=== PATIENT | male | born 1975 | race Caucasian/White ===

== ENCOUNTER 2016-12-24 21:24 | Observation (INO) | payer MEDICAID ==
[2016-12-24 21:24] VITALS: BMI 24.3
[2016-12-24] MEDS ORDERED: Sodium Chloride 0.9% 1,000 ML ONE (22:27)
[2016-12-24] MEDS ORDERED: DiphenhydrAMINE 50 mg/ml Inj ONE (22:28)
[2016-12-24 22:51] LABS: BASO # 0.1 K/uL (0.0-0.2); BASO % 0.7 % (0.0-2.0); EOS # 0.3 K/uL (0.0-0.7); EOS % 3.7 % (0.0-4.0); HEMATOCRIT 40.8 % (35.0-51.0); LYMPH # 1.6 K/uL (1.0-4.3); MEAN CELL VOLUME 80.5 fL (80.0-94.0); MEAN CORPUSCULAR HEMOGLOBIN 26.7 pg (27.0-31.0); MEAN CORPUSCULAR HGB CONC 33.2 g/dL (33.0-37.0); MEAN PLATELET VOLUME 7.6 fL (7.2-11.7); MONO # 0.8 K/uL (0.0-0.8); MONO % 9.8 % (0.0-10.0); NRBC % 0.1 % (0.0-2.0); RED CELL DISTRIBUTION WIDTH 13.8 % (11.5-14.5); WHITE BLOOD COUNT 8.2 K/uL (4.8-10.8)
[2016-12-24 22:58] LABS: CHLORIDE 102 mmol/L (98-107); SODIUM 137 mmol/L (132-148)
[2016-12-24 22:59] LABS: POTASSIUM 3.6 mmol/L (3.6-5.2)
[2016-12-24 23:00] LABS: GFR AFRICAN-AMERICAN 32
[2016-12-24 23:01] LABS: ALB/GLOB RATIO 1.3 (1.0-2.1); ALKALINE PHOSPHATASE 76 U/L (38-126); AST/SGOT 23 U/L (17-59); BILIRUBIN,TOTAL 0.5 mg/dL (0.2-1.3); BLOOD UREA NITROGEN 36 mg/dL (9-20); CARBON DIOXIDE 23 mmol/L (22-30); GLUCOSE,RANDOM 110 mg/dL (75-110); TOTAL PROTEIN 7.3 g/dL (6.3-8.3)
[2016-12-24 23:02] LABS: ALT/SGPT 35 U/L (21-72)
[2016-12-24] MEDS ORDERED: MethylPREDNISolone 40 mg Vial IVP STA (23:09)
[2016-12-24] MEDS ORDERED: DiphenhydrAMINE 50 mg/ml Inj IVP STA (23:09)
--- NOTE | 2016-12-25 00:03 | C.PDOC ---
History Of Present Illness A 41 y/o M presents to the ER c/o lacy rash to chest, arms, legs, back, and abdomen for the last 2 days. Patient notes this a rash similar to a previous one in July with a lengthy hospitalization. Denies fever, chills, nausea, vomiting, diarrhea, sick contact, recent travel, or any other complaints. Time Seen by Provider: 12/24/16 22:21 Chief Complaint (Nursing): Allergic Reaction History Per: Patient History/Exam Limitations: no limitations Onset/Duration Of Symptoms: Days (2) Current Symptoms Are (Timing): Still Present Severity: Mild Recent travel outside of the [place]: No Additional History Per: Patient Past Medical History Reviewed: Historical Data, Nursing Documentation, Vital Signs Vital Signs: Last Vital Signs Temp 98.3 F 12/24/16 21:52 Pulse 82 12/25/16 00:20 Resp 18 12/25/16 00:20 BP 135/102 H 12/25/16 00:20 Pulse Ox 100 12/25/16 00:20 - Medical History PMH: HTN, Chronic Kidney Disease Family History: States: Unknown Family Hx - Social History Hx Tobacco Use: No Hx Alcohol Use: No Hx Substance Use: No - Immunization History Hx Tetanus Toxoid Vaccination: No Hx Influenza Vaccination: No Hx Pneumococcal Vaccination: No Review Of Systems Except As Marked, All Systems Reviewed And Found Negative. Constitutional: Negative for: Fever, Chills Gastrointestinal: Negative for: Nausea, Vomiting, Diarrhea Skin: Positive for: Rash Physical Exam - Physical Exam Appears: Non-toxic, No Acute Distress Skin: Warm, Dry, Rash (Lacy rash to the chest, arms, abdomen, back, and legs with confluence and wheals. Consistent with acute alergic reaction and similar to prior presentation.) Head: Atraumatic, Normacephalic Ear(s): Bilateral: Normal Nose: Normal Oral Mucosa: Moist Throat: Normal, No Erythema, No Exudate Neck: Supple Cardiovascular: Rhythm Regular Respiratory: Normal Breath Sounds, No Rales, No Rhonchi, No Wheezing Gastrointestinal/Abdominal: Soft, No Tenderness Neurological/Psych: Oriented x3, Normal Speech, Normal Cognition ED Course And Treatment - Laboratory Results Result Diagrams: 12/24/16 22:44 12/24/16 22:44 Lab Interpretation: Normal (baseline creat +/- 2.7, normal K+, trop neg) ECG: Interpreted By Me ECG Rhythm: Sinus Rhythm ECG Interpretation: Normal Rate From EC O2 Sat by Pulse Oximetry: 96 (RA) Pulse Ox Interpretation: Normal - Radiology CXR: Interpreted by Me CXR Interpretation: Yes: No Acute Disease Progress Note: solumedrol, pepcid, benadryl Reevaluation Time: 23:58 Reassessment Condition: Unchanged (no significant improvement of rash on chest/ arms/legs/abd, continued pruritic) - Physician Consult Information Outcome Of Conversation: [id number]: d/w Dr. Mcguire- PMD ok to Obs, consult w Dr. Kendall's group in AM Critical Care Time - Critical Care Note Total Time (in mins): 90 Documented critical care: time excludes all time spent performing seperately billable procedures. Medical Decision Making Medical Decision Making: Impression: A 41 y/o M presents to the ER c/o lacy rash to chest, arms, legs, back, and abdomen for the last 2 days. Plans: * EKG * CXR * Catapres * Benadryl * Pepcid * SOLU-Medrol * UA * IV fluids * Reassess acute on chronic rash of ? etiology ? related to med changes, but no changes in past month unimproved w ED treatment- not comfortable d/c'ing pt with evolving rash and underlying CRI Called pt's pharmacy, not open @ night- admitting team may call in AM to verify meds/doses. HTN regimen is poorly organized and taken @ 9AM and 9PM which provokes terrible rebound HTN effects of Conidine when taken this way Taking Amlodipine @ night for ?? reason, advised to take in AM, dose unknown Carvedilol BID but taking 9A and 9P, dose unknown Nephrology to please organize HTN regimen for better compliance. Disposition Doctor Will See Patient In The: Hospital Counseled Patient/Family Regarding: Studies Performed, Diagnosis - Disposition Disposition: HOSPITALIZED Disposition Time: 00:03 Condition: GOOD - Clinical Impression Clinical Impression: Rash, CKD (chronic kidney disease), stage III, Uncontrolled hypertension - Scribe Statement The provider has reviewed the documentation as recorded by the [facility] All medical record entries made by the [facility] were at my direction and personally dictated by me. I have reviewed the chart and agree that the record accurately reflects my personal performance of the history, physical exam, medical decision making, and the department course for this patient. I have also personally directed, reviewed, and agree with the discharge instructions and disposition.
[2016-12-25 01:26] LABS: RBC URINE 1 /hpf (0-3); URINE BILIRUBIN NEGATIVE (NEGATIVE); URINE COLOR Colorless (YELLOW); URINE GLUCOSE (UA) 1+ mg/dL (Normal); URINE KETONE NEGATIVE (NEGATIVE); URINE LEUKOCYTE ESTERASE NEG Leu/uL (Negative); URINE PROTEIN 1+ mg/dL (NEGATIVE); URINE UROBILINOGEN NORMAL mg/dL (0.2-1.0); WBC URINE < 1 /hpf (0-5)
[2016-12-25 01:30] LABS: URINE BLOOD NEGATIVE (NEGATIVE)
[2016-12-25] MEDS: Sodium Chloride 0.9% 1,000 ML IV SCH ×2 (05:09→09:15)
--- NOTE | 2016-12-25 08:10 | RAD ---
PROCEDURE: CHEST RADIOGRAPH, 1 VIEW HISTORY: SOB COMPARISON: Comparison is made to 06/27/2016 FINDINGS: LUNGS: Suboptimal poor inspiratory effort portable frontal chest x-ray. No evidence of new infiltrate or consolidation. PLEURA: No pneumothorax or pleural fluid seen. CARDIOVASCULAR: Normal. OSSEOUS STRUCTURES: No significant abnormalities. VISUALIZED UPPER ABDOMEN: Normal. OTHER FINDINGS: None. IMPRESSION: No active disease.
[2016-12-25] MEDS ORDERED: MethylPREDNISolone 40 mg Vial IVP STA (09:07)
--- NOTE | 2016-12-25 09:22 | CP.PCM.CON ---
History of Present Illness - History of Present Illness History of Present Illness: A 41 y/o M presents to the ER c/o lacy rash to chest, arms, legs, back, and abdomen for the last 2 days. Patient notes this a rash similar to a previous one in July with a lengthy hospitalization. Denies fever, chills, nausea, vomiting, diarrhea, sick contact, recent travel, or any other complaints. RASH HAS BEEN INTERMITTENT; DIFFUSE, PRURITIC, MACULAR PAPULAR PMH: CKD 3-4 HTN PSH: HERNIA REPAIR Review of Systems - Review of Systems All systems: reviewed and no additional remarkable complaints except - Constitutional Constitutional: Weakness - EENT Eyes: absent: As Per HPI, Blind Spots, Blurred Vision, Change in Vision, Decreased Night Vision, Diplopia, Discharge, Dry Eye, Exophthalmos, Floaters, Irritation, Itchy Eyes, Loss of Peripheral Vision, Pain, Photophobia, Requires Corrective Lenses, Sees Flashes, Spots in Vision, Tunnel Vision, Other Visual Disturbances, Loss of Vision, Other Ears: absent: As Per HPI, Decreased Hearing, Ear Discharge, Ear Pain, Tinnitus, Abnormal Hearing, Disequilibrium, Dizziness, Other Nose/Mouth/Throat: absent: As Per HPI, Epistaxis, Nasal Congestion, Nasal Discharge, Nasal Obstruction, Nasal Trauma, Nose Pain, Post Nasal Drip, Sinus Pain, Sinus Pressure, Bleeding Gums, Change in Voice, Dental Pain, Dry Mouth, Dysphagia, Halitosis, Hoarsness, Lip Swelling, Mouth Lesions, Mouth Pain, Odynophagia, Sore Throat, Throat Swelling, Tongue Swelling, Facial Pain, Neck Pain, Neck Mass, Other - Cardiovascular Cardiovascular: absent: As Per HPI, Acrocyanosis, Chest Pain, Chest Pain at Rest , Chest Pain with Activity, Claudication, Diaphoresis, Dyspnea, Dyspnea on Exertion, Edema, Irregular Heart Rhythm, Pain Radiating to Arm/Neck/Jaw, Leg Edema, Leg Ulcers, Lightheadedness, Orthopnea, Palpitations, Paroxysmal Nocturnal Dyspnea, Pedal Edema, Radiating Pain, Rapid Heart Rate, Slow Heart Rate, Syncope, Other - Respiratory Respiratory: absent: As Per HPI, Cough, Dyspnea, Hemoptysis, Dyspnea on Exertion , Wheezing, Snoring, Stridor, Pain on Inspiration, Chest Congestion, Excessive Mucous Production, Change in Mucous Color, Pain with Coughing, Other - Gastrointestinal Gastrointestinal: absent: As Per HPI, Abdominal Pain, Belching, Bloating, Change in Bowel Habits, Change in Stool Character, Coffee Ground Emesis, Constipation, Cramping, Diarrhea, Dyspepsia, Dysphagia, Early Satiety, Excessive Flatus, Fecal Incontinence, Heartburn, Hematemesis, Hematochezia, Loose Stools, Melena, Nausea, Odynophagia, Temesmus, Vomiting, Other - Genitourinary Genitourinary: absent: As Per HPI, Change in Urinary Stream, Difficulty Urinating, Dysuria, Flank Pain, Hematuria, Pyuria, Nocturia, Urinary Incontinence, Urinary Frequency, Urinary Hesitance, Urinary Urgency, Voiding Freq/Small Amts, Freq UTI, Hx Renal/Bladder Calculi, Hx /Renal Surgery, Bladder Distension, Other - Musculoskeletal Musculoskeletal: Muscle Cramps, Stiffness - Integumentary Integumentary: As Per HPI, Erythema, New Lesions - Neurological Neurological: absent: As Per HPI, Abnormal Gait, Abnormal Hearing, Abnormal Movements, Abnormal Speech, Behavioral Changes, Burning Sensations, Confusion, Convulsions, Disequilibrium, Dizziness, Numbness, Focal Weakness, Frequent Falls , Headaches, Lack of Coordination, Loss of Vision, Memory Loss, Paresthesias, Radicular Pain, Restless Legs, Sensory Deficit, Syncope, Tingling, Tremor, Vertigo, Weakness, Other Visual Disturbances, Other - Psychiatric Psychiatric: absent: As Per HPI, Abnormal Sleep Pattern, Anhedonia, Anxiety, Auditory Hallucinations, Behavioral Changes, Change in Appetite, Change in Libido, Confusion, Depression, Difficulty Concentrating, Hallucinations, Homicidal Ideation, Hopelessness, Irritability, Memory Loss, Mood Swings, Panic Attacks, Paranoia, Suicidal Ideation, Visual Hallucinations, Tactile Hallucinations, Other Past Patient History - Infectious Disease Hx of Infectious Diseases: None - Past Medical History & Family History Past Medical History?: Yes Pertinent Family History: SISTER WITH ATROPHIC KIDNEY, CKD, HTN - Past Social History Smoking Status: Never Smoked Chewing Tobacco Use: No Cigar Use: No Alcohol: Occasional Drugs: Denies Home Situation {Lives}: With Family - CARDIAC Hx Hypertension: Yes - PULMONARY Hx Respiratory Disorders: No - NEUROLOGICAL Hx Neurological Disorder: No - HEENT Hx HEENT Problems: No Other/Comment: wears eyeglassed for distance - RENAL Hx Chronic Kidney Disease: Yes - ENDOCRINE/METABOLIC Hx Endocrine Disorders: No - HEMATOLOGICAL/ONCOLOGICAL Hx Blood Disorders: No - INTEGUMENTARY Hx Dermatological Problems: Yes Other/Comment: history of allergic reactions - MUSCULOSKELETAL/RHEUMATOLOGICAL Hx Falls: No - GASTROINTESTINAL Hx Gastrointestinal Disorders: No - GENITOURINARY/GYNECOLOGICAL Hx Genitourinary Disorders: No - PSYCHIATRIC Hx Psychophysiologic Disorder: No Hx Substance Use: No - SURGICAL HISTORY Hx Surgeries: Yes Hx Herniorrhaphy: Yes Other/Comment: jeff inguinal hernia repair - ANESTHESIA Hx Anesthesia: Yes Hx Anesthesia Reactions: No Hx Malignant Hyperthermia: No Meds Allergies/Adverse Reactions: Allergies Allergy/AdvReac Type Severity Reaction Status Date / Time allopurinol Allergy RASH Verified 06/27/16 10:40 febuxostat [From Uloric] Allergy RASH Verified 06/27/16 10:40 - Medications Medications: Current Medications Heparin Sodium (Porcine) (Heparin) 5,000 units SC Q12 [facility] Sodium Chloride (Sodium Chloride 0.9%) 1,000 mls @ 100 mls/hr IV .Q10H [facility] Last Admin: 12/25/16 05:09 Dose: 100 mls/hr Physical Exam - Constitutional Appears: Non-toxic, No Acute Distress - Head Exam Head Exam: ATRAUMATIC, NORMAL INSPECTION - Eye Exam Eye Exam: EOMI, Normal appearance - Neck Exam Neck exam: Positive for: Normal Inspection. Negative for: Tenderness - Respiratory Exam Respiratory Exam: Clear to Auscultation Bilateral, NORMAL BREATHING PATTERN - Cardiovascular Exam Cardiovascular Exam: REGULAR RHYTHM, +S1 - GI/Abdominal Exam GI & Abdominal Exam: Soft. absent: Tenderness - Extremities Exam Extremities exam: Positive for: normal inspection. Negative for: tenderness - Neurological Exam Neurological exam: Alert, CN II-XII Intact - Skin Skin Exam: Rash, Urticaria, Warm Results - Vital Signs Recent Vital Signs: Last Vital Signs Temp 98.4 F 12/25/16 07:19 Pulse 70 12/25/16 07:19 Resp 16 12/25/16 07:19 BP 156/92 H 12/25/16 07:19 Pulse Ox 98 12/25/16 07:19 - Labs Result Diagrams: 12/24/16 22:44 12/24/16 22:44 Assessment & Plan (1) CKD (chronic kidney disease) stage 4, GFR 15-29 ml/min Status: Acute (2) Hypertensive chronic kidney disease with stage 1 through stage 4 chronic kidney disease, or unspecified chronic kidney disease Status: Acute (3) Proteinuria Status: Acute (4) Vasculitis Status: Acute - Assessment and Plan (Free Text) Plan: DUE TO POSSIBLE VASCULITIS WILL INITIATE RENAL WORKUP NEEDS BP CONTROL EVENTUALLY WILL LIKELY NEED RENAL BX WILL CHECK FOR INTERSTITIAL NEPHRITIS BUT CKD HAS BEEN PRESENT FOR LONG PERIOD OF TIME
[2016-12-25] MEDS ORDERED: MethylPREDNISolone 40 mg Vial IVP SCH (10:00)
[2016-12-25 11:24] LABS: BASO % 0.2 % (0.0-2.0); HEMATOCRIT 44.7 % (35.0-51.0); LYMPH # 0.5 K/uL (1.0-4.3); LYMPH % 6.7 % (20.0-40.0); MEAN CELL VOLUME 80.5 fL (80.0-94.0); MEAN CORPUSCULAR HEMOGLOBIN 26.2 pg (27.0-31.0); MEAN CORPUSCULAR HGB CONC 32.5 g/dL (33.0-37.0); MEAN PLATELET VOLUME 7.3 fL (7.2-11.7); MONO % 0.4 % (0.0-10.0); PLATELET COUNT 341 K/uL (130-400); RED CELL DISTRIBUTION WIDTH 13.8 % (11.5-14.5); WHITE BLOOD COUNT 8.2 K/uL (4.8-10.8)
[2016-12-25 11:32] LABS: CHLORIDE 102 mmol/L (98-107); POTASSIUM 3.9 mmol/L (3.6-5.2); SODIUM 140 mmol/L (132-148)
[2016-12-25 11:34] LABS: BILIRUBIN,TOTAL 0.5 mg/dL (0.2-1.3); CARBON DIOXIDE 21 mmol/L (22-30); CHOLESTEROL 176 mg/dL (0-199); GFR AFRICAN-AMERICAN 34
[2016-12-25 11:35] LABS: ALB/GLOB RATIO 1.2 (1.0-2.1); ALKALINE PHOSPHATASE 77 U/L (38-126); ALT/SGPT 31 U/L (21-72); AST/SGOT 25 U/L (17-59); BLOOD UREA NITROGEN 35 mg/dL (9-20); CALCIUM 9.6 mg/dl (8.6-10.4); GLUCOSE,RANDOM 204 mg/dL (75-110); TOTAL PROTEIN 7.7 g/dL (6.3-8.3)
--- NOTE | 2016-12-25 11:50 | US ---
PROCEDURE: Ultrasound of the Kidneys HISTORY: CKD EVAL COMPARISON: None available. TECHNIQUE: Sonogram of the kidneys. FINDINGS: RIGHT KIDNEY: Measures: 12.2 x 5.9 x 5.2 cm. Echogenic renal parenchyma. No obstructing calculus, hydronephrosis, or renal cyst identified. LEFT KIDNEY: Measures: 12.1 x 5.4 x 4.8 cm. Echogenic renal parenchyma. 0.9 x 1.0 x 1.0 cm upper pole cyst. No obstructing calculus or hydronephrosis identified. OTHER FINDINGS: Partially imaged urinary bladder distension. IMPRESSION: Echogenic renal parenchyma bilaterally may be seen in the setting of medical renal disease. 1 cm left upper pole renal cyst. No evidence of hydronephrosis or obstructing calculus.
[2016-12-25 12:47] LABS: NEUTROPHIL 87 % (50-75); TOTAL CELLS COUNTED 100
--- NOTE | 2016-12-25 15:18 | CP.PCM.CON ---
Past Patient History - Infectious Disease Hx of Infectious Diseases: None - Past Medical History & Family History Past Medical History?: Yes - Past Social History Smoking Status: Never Smoked Chewing Tobacco Use: No Cigar Use: No Alcohol: Occasional Drugs: Denies Home Situation {Lives}: With Family - CARDIAC Hx Hypertension: Yes - PULMONARY Hx Respiratory Disorders: No - NEUROLOGICAL Hx Neurological Disorder: No - HEENT Hx HEENT Problems: No Other/Comment: wears eyeglassed for distance - RENAL Hx Chronic Kidney Disease: Yes - ENDOCRINE/METABOLIC Hx Endocrine Disorders: No - HEMATOLOGICAL/ONCOLOGICAL Hx Blood Disorders: No - INTEGUMENTARY Hx Dermatological Problems: Yes Other/Comment: history of allergic reactions - MUSCULOSKELETAL/RHEUMATOLOGICAL Hx Falls: No - GASTROINTESTINAL Hx Gastrointestinal Disorders: No - GENITOURINARY/GYNECOLOGICAL Hx Genitourinary Disorders: No - PSYCHIATRIC Hx Psychophysiologic Disorder: No Hx Substance Use: No - SURGICAL HISTORY Hx Surgeries: Yes Hx Herniorrhaphy: Yes Other/Comment: rite inguinal hernia repair - ANESTHESIA Hx Anesthesia: Yes Hx Anesthesia Reactions: No Hx Malignant Hyperthermia: No Meds Allergies/Adverse Reactions: Allergies Allergy/AdvReac Type Severity Reaction Status Date / Time allopurinol Allergy RASH Verified 06/27/16 10:40 febuxostat [From Uloric] Allergy RASH Verified 06/27/16 10:40 - Medications Medications: Current Medications Amlodipine Besylate (Norvasc) 10 mg PO DAILY [facility] Last Admin: 12/25/16 10:01 Dose: 10 mg Carvedilol (Coreg) 12.5 mg PO BID [facility] Last Admin: 12/25/16 10:00 Dose: 12.5 mg Clonidine HCl (Catapres) 0.2 mg PO BID [facility] Last Admin: 12/25/16 10:01 Dose: 0.2 mg Diphenhydramine HCl (Benadryl) 50 mg PO Q8 PRN PRN Reason: Itching / Pruritus Last Admin: 12/25/16 13:24 Dose: 50 mg Heparin Sodium (Porcine) (Heparin) 5,000 units SC Q12 [facility] Last Admin: 12/25/16 10:01 Dose: 5,000 units Hydralazine HCl (Apresoline) 25 mg PO TID [facility] Last Admin: 12/25/16 13:24 Dose: 25 mg Sodium Chloride (Sodium Chloride 0.9%) 1,000 mls @ 100 mls/hr IV .Q10H [facility] Last Admin: 12/25/16 09:15 Dose: Not Given Methylprednisolone (Solu-Medrol) 20 mg IVP Q12 [facility] Last Admin: 12/25/16 10:01 Dose: 20 mg Results - Vital Signs Recent Vital Signs: Last Vital Signs Temp 98.4 F 12/25/16 07:19 Pulse 80 12/25/16 13:24 Resp 16 12/25/16 07:19 BP 135/79 12/25/16 13:24 Pulse Ox 98 12/25/16 07:19 - Labs Result Diagrams: 12/25/16 11:14 12/25/16 11:14 Labs: Laboratory Results - last 24 hr 12/25/16 12/25/16 12/25/16 11:14 11:14 11:14 WBC 8.2 RBC 5.55 Hgb 14.5 Hct 44.7 MCV 80.5 MCH 26.2 L MCHC 32.5 L RDW 13.8 Plt Count 341 MPV 7.3 Neut % (Auto) 92.7 H Lymph % (Auto) 6.7 L [place] % (Auto) 0.4 Eos % (Auto) 0.0 Baso % (Auto) 0.2 Neut # 7.6 H Lymph # 0.5 L [place] # 0.0 Eos # 0.0 Baso # 0.0 Neutrophils % (Manual) 87 H Band Neutrophils % 6 H Lymphocytes % (Manual) 6 L Monocytes % (Manual) 1 Platelet Estimate Normal Ovalocytes Slight Sodium 140 Potassium 3.9 Chloride 102 Carbon Dioxide 21 L Anion Gap 21 H BUN 35 H Creatinine 2.5 H Est GFR ( Amer) 34 Est GFR (Non-Af Amer) 28 Random Glucose 204 H Calcium 9.6 Total Bilirubin 0.5 AST 25 ALT 31 Alkaline Phosphatase 77 Total Protein 7.7 Albumin 4.3 Globulin 3.5 Albumin/Globulin Ratio 1.2 Triglycerides 47 D Cholesterol 176 LDL Cholesterol Direct 115 HDL Cholesterol 46 Complement C3 123.0 Complement C4 34.5 Hep Bs Antigen Negative Hepatitis C Antibody 12/25/16 11:14 WBC RBC Hgb Hct MCV MCH MCHC RDW Plt Count MPV Neut % (Auto) Lymph % (Auto) [place] % (Auto) Eos % (Auto) Baso % (Auto) Neut # Lymph # [place] # Eos # Baso # Neutrophils % (Manual) Band Neutrophils % Lymphocytes % (Manual) Monocytes % (Manual) Platelet Estimate Ovalocytes Sodium Potassium Chloride Carbon Dioxide Anion Gap BUN Creatinine Est GFR ( Amer) Est GFR (Non-Af Amer) Random Glucose Calcium Total Bilirubin AST ALT Alkaline Phosphatase Total Protein Albumin Globulin Albumin/Globulin Ratio Triglycerides Cholesterol LDL Cholesterol Direct HDL Cholesterol Complement C3 Complement C4 Hep Bs Antigen Hepatitis C Antibody Negative
--- NOTE | 2016-12-25 15:32 | CP.PCM.PN ---
Subjective - Date & Time of Evaluation Date of Evaluation: 12/25/16 Time of Evaluation: 14:45 - Subjective Subjective: H&P dictated #[id number] Objective - Vital Signs/Intake and Output Vital Signs (last 24 hours): Temp Pulse Resp BP Pulse Ox 98.4 F 80 16 135/79 98 12/25/16 07:19 12/25/16 13:24 12/25/16 07:19 12/25/16 13:24 12/25/16 07:19 - Medications Medications: Current Medications Amlodipine Besylate (Norvasc) 10 mg PO DAILY [facility] Last Admin: 12/25/16 10:01 Dose: 10 mg Carvedilol (Coreg) 12.5 mg PO BID [facility] Last Admin: 12/25/16 10:00 Dose: 12.5 mg Clonidine HCl (Catapres) 0.2 mg PO BID [facility] Last Admin: 12/25/16 10:01 Dose: 0.2 mg Diphenhydramine HCl (Benadryl) 50 mg PO Q8 PRN PRN Reason: Itching / Pruritus Last Admin: 12/25/16 13:24 Dose: 50 mg Heparin Sodium (Porcine) (Heparin) 5,000 units SC Q12 [facility] Last Admin: 12/25/16 10:01 Dose: 5,000 units Hydralazine HCl (Apresoline) 25 mg PO TID [facility] Last Admin: 12/25/16 13:24 Dose: 25 mg Sodium Chloride (Sodium Chloride 0.9%) 1,000 mls @ 100 mls/hr IV .Q10H [facility] Last Admin: 12/25/16 09:15 Dose: Not Given Methylprednisolone (Solu-Medrol) 20 mg IVP Q12 [facility] Last Admin: 12/25/16 10:01 Dose: 20 mg - Labs Labs: 12/25/16 11:14 12/25/16 11:14
[2016-12-25 16:22] VITALS: PULSE 60; RESP 20; TEMP 97.7; O2SAT 94
[2016-12-25 17:24] VITALS: BP 145/82
--- NOTE | 2016-12-25 17:55 | CARD ---
APPROVED REPORT EKG Measurement Heart [id number] <Conclusion> Normal sinus rhythm Normal ECG
[2016-12-25 18:30] LABS: RBC URINE < 1 /hpf (0-3); URINE BILIRUBIN NEGATIVE (NEGATIVE); URINE BLOOD NEGATIVE (NEGATIVE); URINE COLOR Yellow (YELLOW); URINE GLUCOSE (UA) 2+ mg/dL (Normal); URINE KETONE NEGATIVE (NEGATIVE); URINE LEUKOCYTE ESTERASE NEG Leu/uL (Negative); URINE PROTEIN 2+ mg/dL (NEGATIVE); URINE UROBILINOGEN NORMAL mg/dL (0.2-1.0); WBC URINE 1 /hpf (0-5)
--- NOTE | 2016-12-26 01:23 | CON ---
CONSULT REQUESTED BY: Dr. Vishal Ware. HISTORY OF PRESENT ILLNESS: This patient is a 41-year-old male. He was admitted last night with rash which was extending in arms, legs, back, abdomen, and he was uneasy and ended up coming to the hospital. He denied any fevers, chills, nausea, vomiting, or diarrhea. He said he had similar rash in the past. He does have renal insufficiency and he suffers from hypertension. He said he did not get care to take medications beforehand and has renal failure and came in with a rash and history of hypertension. The patient's attending came by and she said he was there with a sore throat and was prescribed Augmentin. He was not allergic to penicillin. He took it for a few days and when his throat and voice got better he stopped it, but now he is with diffuse rash here and he is allergic to allopurinol and febuxostat which is Uloric which is also used for hyperuricemia. He was here in June and they did a big workup at that time. He was also seen by the renal attending for renal insufficiency and at this time he denies any nausea, no vomiting, no fever, no chills. He has a rash and he wants to go home as he is moving and he has some commitment and he is starting to feel a little better. PAST MEDICAL HISTORY: He has hypertension, chronic kidney problems. FAMILY HISTORY: Unknown. MEDICATIONS: At the present time, he is on Norvasc, Coreg, Catapres, Benadryl. He is on heparin, alprazolam, Solu-Medrol. PHYSICAL EXAMINATION: VITAL SIGNS: I find his temperature is 98.4, pulse is 80, blood pressure 135/75, respirations are 16. HEENT: Head is atraumatic and normocephalic. Pupils are reacting to light. Throat no congestion, no thrush seen. NECK: Supple. JVP is flat. LUNGS: Clear. HEART: S1 and S2 is regular. No murmurs appreciated. SKIN: There is no rash on the back or on the abdomen at this time. He is improving. ABDOMEN: Soft, nontender. No guarding, no rigidity present. EXTREMITIES: Diffuse maculopapular rash with itching significant for allergic reaction to medication and since he took Augmentin I would hold off giving Augmentin in future and I told the patient as well as the attending, he is aware of it. LABORATORY DATA: White count is 8.2, hemoglobin 14.5, hematocrit 44.7, platelet count is 341. Sodium is 140, potassium 3.9, chloride 102, CO2 is 21, anion gap is 21, BUN is 35, creatinine is 2.5, which is his baseline. ASSESSMENT AND PLAN: He came in with allergic reaction most likely secondary to Augmentin I would think at this time and the patient is made aware of it. He can go home on Benadryl and Pepcid. Thank you for the consult. Dashawn Simmons MD
--- NOTE | 2016-12-26 01:43 | HP ---
CHIEF COMPLAINT: Skin rash. HISTORY OF PRESENT ILLNESS: Mr. Barros is a 41-year-old male with past medical history of hypertension, chronic kidney disease, who was admitted to the hospital in the month of June for generalized rash. It was presumed that he was allergic to allopurinol, which was discontinued. Patient has been following up with me in the office for medical care and he was seen in the office for acute laryngitis and pharyngitis for which he was given Augmentin about a week ago, patient discontinued medication on Friday. He started noticing a rash developing all over the body for the past 2 days. Yesterday, the rash was so severe with itching and patient decided to come to the ED. Patient received Solu-Medrol and Benadryl in the ED and patient is being admitted for further management. Patient denies using any other medication other than Robitussin and [place] and Augmentin. Denied taking any other OTC medication. Denies any headache. Denies any dizziness. Denies any chest pain, shortness of breath or wheezing. Denies any nausea, vomiting, abdominal pain, diarrhea or constipation. Denies any urinary complaints. Denies any leg pains or leg cramps. Denies any other neurologic symptoms. Denies any swelling or difficulty swallowing. PAST MEDICAL HISTORY: As described hypertension, CKD. PAST SURGICAL HISTORY: Underwent inguinal hernia repair when he was very young. FAMILY HISTORY: Father has history of hypertension, sister suffers from CKD. PERSONAL HISTORY: He is , living with his . SOCIAL HISTORY: Denies smoking, alcohol or drug abuse. ALLERGIES: ALLOPURINOL and ULORIC. REVIEW OF SYSTEMS: As described in history of present illness. PHYSICAL EXAMINATION GENERAL: Young male, lying in bed, in no acute distress. VITAL SIGNS: Blood pressure 140/93, pulse 88, respirations 18, temperature 98.4 degrees Fahrenheit. O2 sats 100% on room air. HEENT: Pupils equal, round, reacting to light and accommodation. Extraocular muscles intact. No icterus, no pallor. No oral thrush. No pharyngeal congestion. NECK: Supple. No JVD. No thyromegaly. CHEST: Moving equally bilaterally on respiration. LUNGS: Bilateral vesicular breath sounds. No wheezing. No rhonchi. CARDIOVASCULAR SYSTEM: S1 and S2 present and regular. ABDOMEN: Soft and nontender. Bowel sounds are present. No guarding. No rigidity. No rebound tenderness noted. CENTRAL NERVOUS SYSTEM: Alert, awake, and oriented x3. No focal deficits noted. EXTREMITIES: No edema. Palpable peripheral pulses. SKIN: There is maculopapular erythematous rash all over the body including the palms and spared by the face. As per the patient, the rash is improving from yesterday. LABORATORY DATA: WBC of 8.2, hemoglobin of 14.5, hematocrit of 44.7 and platelets of 341. Sodium of 140, potassium of 3.6, chloride of 102, bicarbonate of 23, BUN of 36, creatinine of 2.7, glucose of 110, and calcium of 9.0. LFTs within normal limits. Cholesterol 176, LDL 115, HDL of 46. Urine specific gravity 1.004, pH 6.0, protein 1+, glucose 1+. Otherwise negative. Serum cryoglobulin is pending. C3 173, C4 34. Hepatitis serology negative. Cryoglobulin pending. Review of old records shows that ASO is negative. Rubella immune. PAO positive, 1:40 speckled pattern. C ANCA and P-ANCA are negative. ASSESSMENT AND PLAN: Young male with history of hypertension, chronic kidney disease admitted for generalized maculopapular rash. 1. Generalized rash, probably drug reaction from Augmentin, rule out other causes. 2. Chronic kidney disease is stable. 3. Hypertension, blood pressure is slightly high. PLAN: The patient is being admitted to the hospital. Patient received Solu-Medrol 125 mg in the ED along with Benadryl. I will continue with Solu-Medrol 20 mg IV q. 12 hours, Benadryl as needed. Advised patient to not take anymore penicillin containing antibiotics in the future. Continue with his home blood pressure medications. Patient is requesting to be discharged today, claiming that rash improved and he has some things to care at home. Advised patient to get the evening dose of Solu-Medrol and be discharged after IV and follow up with nephrology as an outpatient and cardiology as outpatient as scheduled. Advised him to call me if any worsening of his symptoms. We will give him Medrol Dosepak and Benadryl as needed and Pepcid for GI prophylaxis. Advised patient to follow up with me in one week. Vishal Ware MD HUANG
[2016-12-26 11:33] LABS: CRYOGLOBULIN NEGATIVE (NEGATIVE)
[2016-12-27 10:59] LABS: RHEUMATOID FACTOR 6 IU/mL (<14)
[2016-12-27 23:07] LABS: RETICULIN AB IGA NEGATIVE (NEGATIVE)
[2016-12-28 04:01] LABS: SM ANTIBODY <1.0 NEG AI (<1.0 NEGATIVE)
[2016-12-29 01:06] LABS: ANA TITER 1:40 titer
[2016-12-29 02:33] LABS: PARIETAL CELL AB <20.0 U
[2016-12-30 01:27] LABS: DNA AB (DS) CRITH NEGATIVE (NEGATIVE); MYOCARDIAL AB IF NEGATIVE (NEGATIVE)
== END 2016-12-25 19:20 | disposition home or self-care (01) ==
LOC: C.ER 21:24 → SUPCPDRO 21:24 → C.9E 23:55 → INTOOBSV 23:55 → C.5T 12-25 07:20
PROVIDERS: ADMIT Internal Medicine; ATTEND Internal Medicine
DX: L29.9 Pruritus, unspecified (principal); I12.9 Hypertensive chronic kidney disease with stage 1 through stage 4 chronic kidney disease, or unspecified chronic kidney disease; N18.3 Chronic kidney disease, stage 3 (moderate)
CPT/HCPCS: 36415; 71010; 76770; 80053; 80061; 81001; 82595; 83516; 83880; 84484; 85025; 86021; 86038; 86160; 86235; 86376; 86431; 86803; 87205; 87340; 93005; 96374; G0378; J1200; J1644; J2920; J7040

== ENCOUNTER 2017-01-13 18:50 | Emergency (ER) | payer MEDICAID ==
[2017-01-13 18:51] VITALS: BMI 25.7
[2017-01-13 18:57] VITALS: RESP 18; TEMP 97.6
[2017-01-13] MEDS ORDERED: Sodium Chloride 0.9% 1,000 ML IV ONE (19:14)
--- NOTE | 2017-01-13 19:24 | C.PDOC ---
History Of Present Illness 41 yo male w/PMHx of CRF, vasculitis, HTN, come in for evaluation of diffuse erythematous rash gradually developed for past few days. Pt admits, similar sx in past, last admission due to same sx 2 weeks ago, placed on Prednisone 20 mg, Benadryl, Pepcid. Pt sts, took last steroid pill today without improvement in rash. Otherwise, pt denies fever, chills, headache, dizziness, drooling, throat swelling, dysphagia, dyspnea, cough, CP, SOB, wheezing, diaphoresis, palpitation , abd. pain, N/V/D, back pain, UTI sx. Ambulate to ED not in any apparent distress. Time Seen by Provider: 01/13/17 18:59 Chief Complaint (Nursing): Allergic Reaction History Per: Patient History/Exam Limitations: no limitations Onset/Duration Of Symptoms: Days Past Medical History Reviewed: Historical Data, Nursing Documentation, Vital Signs Vital Signs: Last Vital Signs Temp 97.6 F 01/13/17 18:54 Pulse 77 01/13/17 18:54 Resp 18 01/13/17 18:54 BP 157/94 H 01/13/17 18:54 Pulse Ox 98 01/13/17 20:17 - Medical History PMH: HTN, Chronic Kidney Disease Family History: States: No Known Family Hx - Social History Hx Tobacco Use: No Hx Alcohol Use: No Hx Substance Use: No - Immunization History Hx Tetanus Toxoid Vaccination: No Hx Influenza Vaccination: No Hx Pneumococcal Vaccination: No Review Of Systems Except As Marked, All Systems Reviewed And Found Negative. Constitutional: Negative for: Fever, Chills ENT: Negative for: Throat Swelling Cardiovascular: Negative for: Chest Pain, Palpitations Respiratory: Negative for: Cough, Shortness of Breath, Wheezing Gastrointestinal: Negative for: Nausea, Vomiting, Abdominal Pain Musculoskeletal: Negative for: Back Pain Skin: Positive for: Rash (Diffuse erythematous rash) Neurological: Negative for: Headache, Dizziness Physical Exam - Physical Exam Appears: Well, Non-toxic, No Acute Distress Skin: Normal Color, Warm, Dry, Rash (scattered urticaria to trunk and B/L LEs. Petechial scant rash to B/L LEs. noedema, no cellulitis.) Eye(s): bilateral: PERRL Nose: No Flaring, No Discharge Oral Mucosa: Moist, No Drooling Tongue: Normal Appearing Lips: Normal Appearing Throat: Normal, No Erythema, No Exudate, No Drooling, Other (uvula midline, no edema.) Neck: Supple Cardiovascular: Rhythm Regular Respiratory: No Decreased Breath Sounds, No Accessory Muscle Use, No Rales, No Rhonchi, No Stridor, No Wheezing Gastrointestinal/Abdominal: Soft, No Tenderness, No Distention, No Guarding Back: No CVA Tenderness Extremity: Normal ROM, No Pedal Edema, No Swelling Neurological/Psych: Oriented x3, Normal Speech ED Course And Treatment - Laboratory Results Result Diagrams: 01/13/17 19:32 01/13/17 19:32 Lab Interpretation: No Changes Compared To Prior Results O2 Sat by Pulse Oximetry: 98 (RA) Pulse Ox Interpretation: Normal Progress Note: Case discussed with , diagnostics review and discharge vs outpt f/u w/Nephrology and dermatology recommend at this time. Case discussed and pt was evaluated by ED attending , agrees wiht discharge and outpt f/u. On re-eval, pt appears stable, non-toxic. BP appears well controlled, no evidence of proteinuria. ENT: no acute finidngs. Nek: Supple. Lungs: CTA B/L, BS equal B/L. Avd: benign, (-) guarding, (-) rebound. back: (-) CVA tenderness. NO peripheral edema. Pt has clinical findings c/w recurrent urticaria. Plan: increase steriods for past few days. F/ U with Nephrology in 1-2 days for re-eavl. return to ED if any worsening or new changes. Medical Decision Making Medical Decision Making: PLAN: * CBC * CMP * Urinalysis * Pepcid IVP * Solumedrol IVP * Sodium Chloride IV Disposition Counseled Patient/Family Regarding: Studies Performed, Diagnosis, Need For Followup, Rx Given - Disposition Referrals: Jose Eduardo Kendall MD [Staff Provider] - Vishal Ware MD [Staff Provider] - Disposition: HOME/ ROUTINE Disposition Time: 20:46 Condition: STABLE Instructions: Urticaria (ED) Forms: [facility] (Frisian) - Clinical Impression Clinical Impression: CKD (chronic kidney disease) stage 4, GFR 15-29 ml/min, Vasculitis, Rash, Vasculitis - PA / FILTER WASHER / Resident Statement MD/DO has reviewed & agrees with the documentation as recorded. - Scribe Statement The provider has reviewed the documentation as recorded by the Eleonoraibe Miriam Humphries All medical record entries made by the Eleonoraibmaia were at my direction and personally dictated by me. I have reviewed the chart and agree that the record accurately reflects my personal performance of the history, physical exam, medical decision making, and the department course for this patient. I have also personally directed, reviewed, and agree with the discharge instructions and disposition.
[2017-01-13 19:36] LABS: BASO # 0.1 K/uL (0.0-0.2); BASO % 1.1 % (0.0-2.0); EOS # 0.4 K/uL (0.0-0.7); EOS % 5.3 % (0.0-4.0); HEMATOCRIT 38.3 % (35.0-51.0); LYMPH # 1.6 K/uL (1.0-4.3); LYMPH % 21.8 % (20.0-40.0); MEAN CELL VOLUME 81.8 fL (80.0-94.0); MEAN CORPUSCULAR HEMOGLOBIN 27.6 pg (27.0-31.0); MEAN CORPUSCULAR HGB CONC 33.8 g/dL (33.0-37.0); MEAN PLATELET VOLUME 7.6 fL (7.2-11.7); MONO # 0.9 K/uL (0.0-0.8); MONO % 12.4 % (0.0-10.0); RED CELL DISTRIBUTION WIDTH 14.5 % (11.5-14.5); WHITE BLOOD COUNT 7.2 K/uL (4.8-10.8)
[2017-01-13 19:47] LABS: POTASSIUM 3.6 mmol/L (3.6-5.2)
[2017-01-13 19:49] LABS: ALB/GLOB RATIO 1.5 (1.0-2.1); BILIRUBIN,TOTAL 0.6 mg/dL (0.2-1.3); TOTAL PROTEIN 6.9 g/dL (6.3-8.3)
[2017-01-13 19:50] LABS: CALCIUM 8.6 mg/dl (8.6-10.4)
[2017-01-13 20:05] LABS: URINE BILIRUBIN NEGATIVE (NEGATIVE); URINE BLOOD NEGATIVE (NEGATIVE); URINE COLOR Colorless (YELLOW); URINE GLUCOSE (UA) NORMAL (Normal); URINE KETONE NEGATIVE (NEGATIVE); URINE LEUKOCYTE ESTERASE NEG Leu/uL (Negative); URINE PROTEIN NEGATIVE (NEGATIVE); URINE UROBILINOGEN NORMAL mg/dL (0.2-1.0); WBC URINE < 1 /hpf (0-5)
[2017-01-13 20:41] VITALS: BP 129/79; PULSE 64
[2017-01-13 20:46] VITALS: O2SAT 98
== END 2017-01-13 21:00 | disposition home or self-care (01) ==
LOC: C.ER 18:50
DX: L50.9 Urticaria, unspecified (principal); N18.4 Chronic kidney disease, stage 4 (severe); I77.6 Arteritis, unspecified
CPT/HCPCS: 80053; 81001; 85025; 96361; 96374; 96375; 99284; J2930; J7040

== ENCOUNTER 2017-01-22 10:45 | Day surgery (SDC) | payer MEDICAID ==
[2017-01-16 11:35] VITALS: BMI 25.0
[2017-01-22] MEDS ORDERED: Midazolam 2 MG/2 ML VIAL ONE (13:21)
[2017-01-22] MEDS ORDERED: Absorbable Gelatin Sponge Size 12-7 ONE (13:25)
--- NOTE | 2017-01-22 13:35 | PCM.SURG1 ---
Surgeon's Initial Post Op Note - Surgeon's Notes Surgeon: Jus Orozco MD Document Control Clerk: NONE Type of Anesthesia: IV Sedation Pre-Operative Diagnosis: Renal insufficiency, rash Operative Findings: US showed a 6 cm left renal cyst. Right and left kidneys are echogenic. Post-Operative Diagnosis: Renal insufficiency, rash Operation Performed: US guided left renal biopsy. Biopsy tract embolized with gelfOAM. Specimen/Specimens Removed: 18 gauge core x 3 Estimated Blood Loss: EBL {In ML}: 1 Blood Products Given: N/A Drains Used: No Drains Post-Op Condition: Good Date of Surgery/Procedure: 01/22/17 Time of Surgery/Procedure: 13:30
--- NOTE | 2017-01-22 13:37 | CP.SDSHP ---
Same Day Surgery H & P - History Proposed Procedure: US guided renal biopsy Pre-Op Diagnosis: Rash, renal insufficiency - Allergies Allergies: Allergies allopurinol Allergy (Intermediate, Verified 01/16/17 11:34) RASH febuxostat [From Uloric] Allergy (Intermediate, Verified 01/16/17 11:34) RASH Penicillins Allergy (Intermediate, Verified 01/16/17 11:34) RASH - Physical Exam Vital Signs: Vital Signs 01/22/17 10:56 Temperature 97.6 F Pulse Rate 60 Respiratory 18 Rate Blood Pressure 161/90 H O2 Sat by Pulse 97 Oximetry Mental Status: Alert & Oriented x3 Neuro: WNL Heart: WNL - Impression Impression: Pt with rash and possible autoimmune disorder referred for renal biopsy. Plan US guided renal biopsy. INformed consent obtained and risk of bleeding explained to the patient. Pt. Evaluated Today:Candidate for Anesthesia & Procedure: Yes (ASA 2 Malampati 3) - Date & Time Date: 01/22/17 Time: 13:00 Short Stay Discharge - Short Stay Discharge Admitting Diagnosis/Reason for Visit: CYST OF KIDNEY, ACQUIRED
[2017-01-22 17:36] VITALS: BP 156/96; PULSE 62; RESP 16; TEMP 97.6; O2SAT 99
--- NOTE | 2017-01-23 10:21 | US ---
PROCEDURE: Date of procedure: 01/22/2017 Procedure: Ultrasound-guided left renal biopsy, CPT 23473 Ultrasound guidance for biopsy, [id number] HISTORY: Rash, possible autoimmune disease TECHNIQUE: Following informed consent and procedure time-out, the patient was placed prone on the interventional table and a limited ultrasound showed slightly echogenic left kidney consistent with medical renal disease. There is there is a 6 millimeter left renal cyst. The patient left back was prepped and draped in the usual sterile fashion. After patient sedated by the anesthesiologist and the skin anesthetized with lidocaine, an 18 gauge core needle was advanced percutaneously towards the lower pole cortex. Upon confirmation of needle position, three-18 gauge core specimens were obtained and sent for routine pathology. The biopsy tract was then embolized with Gelfoam. A post biopsy ultrasound showed no hematoma. There were no immediate complications. IMPRESSION: Ultrasound-guided left renal biopsy.
== END 2017-01-22 17:50 | disposition home or self-care (01) ==
LOC: C.SPRAD 10:45
PROVIDERS: ATTEND Radiology Vascular & Interventional Radiology
DX: N26.9 Renal sclerosis, unspecified (principal); N28.9 Disorder of kidney and ureter, unspecified; R21 Rash and other nonspecific skin eruption
CPT/HCPCS: 50200; 76942; 88300; J2250; J3010

== ENCOUNTER 2017-02-22 17:07 | Emergency (ER) | payer MEDICAID ==
[2017-02-22 17:08] VITALS: BMI 25.0
[2017-02-22 18:14] LABS: BASO # 0.1 K/uL (0.0-0.2); BASO % 1.2 % (0.0-2.0); EOS # 0.1 K/uL (0.0-0.7); EOS % 1.7 % (0.0-4.0); HEMATOCRIT 37.9 % (35.0-51.0); LYMPH # 1.6 K/uL (1.0-4.3); LYMPH % 18.5 % (20.0-40.0); MEAN CELL VOLUME 81.6 fL (80.0-94.0); MEAN CORPUSCULAR HEMOGLOBIN 27.3 pg (27.0-31.0); MEAN CORPUSCULAR HGB CONC 33.4 g/dL (33.0-37.0); MEAN PLATELET VOLUME 7.1 fL (7.2-11.7); MONO # 0.9 K/uL (0.0-0.8); MONO % 10.7 % (0.0-10.0); RED CELL DISTRIBUTION WIDTH 14.5 % (11.5-14.5); WHITE BLOOD COUNT 8.7 K/uL (4.8-10.8)
[2017-02-22 18:23] LABS: CHLORIDE 104 mmol/L (98-107); SODIUM 137 mmol/L (132-148)
[2017-02-22 18:26] LABS: ALB/GLOB RATIO 1.4 (1.0-2.1); AST/SGOT 21 U/L (17-59); BILIRUBIN,TOTAL 0.5 mg/dL (0.2-1.3); BLOOD UREA NITROGEN 37 mg/dL (9-20); CARBON DIOXIDE 19 mmol/L (22-30); GFR AFRICAN-AMERICAN 32; GLUCOSE,RANDOM 67 mg/dL (75-110); TOTAL PROTEIN 7.2 g/dL (6.3-8.3)
[2017-02-22 18:27] LABS: ALKALINE PHOSPHATASE 65 U/L (38-126); ALT/SGPT 43 U/L (21-72); CALCIUM 8.6 mg/dl (8.6-10.4)
--- NOTE | 2017-02-22 19:39 | C.PDOC ---
History Of Present Illness 41 year old male with a history of chronic kidney disease presents to the ED with complaints of high blood pressure and occasional swelling of the lower extremities. Patient notes his primary doctor wants to change his medications in order to decrease the number of episodes of ankle swelling. He denies fever, chills, nausea, vomiting, chest pain, or shortness of breath. Chief Complaint (Nursing): High Blood Pressure History Per: Patient History/Exam Limitations: no limitations Onset/Duration Of Symptoms: Hrs (felt blood pressure was high), Intermittent Episodes (occasional ankle swelling ), Persistent Current Symptoms Are (Timing): Still Present Associated Symptoms: denies: Chest Pain Exacerbating Factor(s): Pos: None Recent travel outside of the [place]: No Past Medical History Reviewed: Historical Data, Nursing Documentation, Vital Signs Vital Signs: Last Vital Signs Temp 97.9 F 02/22/17 19:55 Pulse 70 02/22/17 19:55 Resp 18 02/22/17 19:55 BP 105/67 02/22/17 19:55 Pulse Ox 100 02/22/17 21:02 - Medical History PMH: HTN, Chronic Kidney Disease Family History: States: Unknown Family Hx - Social History Hx Tobacco Use: No Hx Alcohol Use: No Hx Substance Use: No - Immunization History Hx Tetanus Toxoid Vaccination: No Hx Influenza Vaccination: No Hx Pneumococcal Vaccination: No Review Of Systems Constitutional: Negative for: Fever Cardiovascular: Negative for: Chest Pain Respiratory: Negative for: Cough, Shortness of Breath Skin: Positive for: Other (swelling of lower extremities) Physical Exam - Physical Exam Appears: Non-toxic, No Acute Distress Skin: Warm, Dry Head: Atraumatic, Normacephalic Eye(s): bilateral: Normal Inspection, PERRL, EOMI Oral Mucosa: Moist Neck: Supple Chest: Symmetrical, No Deformity Cardiovascular: Rhythm Regular, No Murmur Respiratory: No Rales, No Rhonchi, No Wheezing, Other (clear to auscultation bilaterally ) Gastrointestinal/Abdominal: Soft, No Distention, No Guarding, No Rebound Extremity: Normal ROM, No Tenderness, Pedal Edema (+1 edema of bilateral lower extremities ), No Calf Tenderness, Capillary Refill (good capillary refill, less than two seconds ), No Deformity Neurological/Psych: Oriented x3, Other (no focal deficits ) ED Course And Treatment - Laboratory Results Result Diagrams: 02/22/17 18:11 02/22/17 18:11 ECG: Interpreted By Me, Viewed By Me ECG Rhythm: Sinus Rhythm Interpretation Of ECG: Normal axis and intervals. Rate From EC O2 Sat by Pulse Oximetry: 100 (RA) - Radiology CXR: Interpreted by Me, Viewed By Me CXR Interpretation: Yes: No Acute Disease Progress Note: EKG, CXR, and labs were ordered. Disposition - Disposition Referrals: [facility] Florence Priest, [Non-Staff] - Disposition: HOME/ ROUTINE Disposition Time: 19:00 Condition: GOOD Additional Instructions: Thank you for letting us take care of you today. Your provider was Dr. Barry. The emergency medical care you received today was directed at your acute symptoms. If you were prescribed any medication, please fill it and take as directed. It may take several days for your symptoms to resolve. Return to the Emergency Department if your symptoms worsen, do not improve, or if you have any other problems. Please contact your doctor or call one of the physicians/clinics you have been referred to that are listed on the Patient Visit Information form that is included in your discharge packet. Bring any paperwork you were given at discharge with you along with any medications you are taking to your follow up visit. Our treatment cannot replace ongoing medical care by a primary care provider (PCP) outside of the emergency department. Thank you for allowing the [facility] team to be part of your care today. Follow up with your primary doctor and sausage cooker as scheduled. Instructions: Renal Failure Diet (DC) Forms: Work Excuse - Clinical Impression Clinical Impression: CKD (chronic kidney disease), stage III - Scribe Statement The provider has reviewed the documentation as recorded by the Eleonoraibmaia Baeza All medical record entries made by the Eleonoraibmaia were at my direction and personally dictated by me. I have reviewed the chart and agree that the record accurately reflects my personal performance of the history, physical exam, medical decision making, and the department course for this patient. I have also personally directed, reviewed, and agree with the discharge instructions and disposition.
[2017-02-22 19:55] VITALS: BP 105/67; PULSE 70; RESP 18; TEMP 97.9
[2017-02-22 20:42] VITALS: O2SAT 100
--- NOTE | 2017-02-23 13:55 | RAD ---
HISTORY: r/o infiltrate COMPARISON: Comparison is made to 12/24/2016 FINDINGS: LUNGS: Small bibasilar opacities likely atelectasis. Otherwise no significant interval change. PLEURA: No significant pleural effusion identified, no pneumothorax apparent. CARDIOVASCULAR: Normal. OSSEOUS STRUCTURES: No significant abnormalities. VISUALIZED UPPER ABDOMEN: Normal. OTHER FINDINGS: None. IMPRESSION: No active disease.
--- NOTE | 2017-02-24 12:49 | CARD ---
APPROVED REPORT EKG Measurement Heart [id number] <Conclusion> Normal sinus rhythm Septal infarct, age undetermined Abnormal ECG
== END 2017-02-22 19:59 | disposition home or self-care (01) ==
LOC: C.ER 17:07
DX: N18.3 Chronic kidney disease, stage 3 (moderate) (principal)

== ENCOUNTER 2017-05-27 20:37 | Emergency (ER) | payer MEDICAID ==
[2017-05-27 20:38] VITALS: BMI 25.0
[2017-05-27 21:12] VITALS: BP 159/106; PULSE 82; RESP 20; TEMP 97.7; O2SAT 99
[2017-05-27] MEDS ORDERED: Sodium Chloride 0.9% 1,000 ML IV ONE (21:26)
[2017-05-27] MEDS ORDERED: DiphenhydrAMINE 50 mg/ml Inj IVP STA (21:27)
--- NOTE | 2017-05-27 21:28 | C.PDOC ---
History Of Present Illness 42 yo male w/PMHx of chr. kidney ds, previous hx of urticaria, come in for evaluation of diffuse generalized erythematous rash gradually developed for past 24 hours. Pt admits, " had same day surgery,hernia repair , yesterday and was given Percocet for pain". Pt admits, took few dose yesterday and today. Pt admits, similar rash in past. Otherwise,pt denies fever, chills, headache, dizziness, throat pain or swelling, drooling, dysphagia, dyspnea, cough, abd. pain, V/D, denies swelling. Ambulate to Ed for evaluation, not in any apparent distress. Time Seen by Provider: 05/27/17 21:15 Chief Complaint (Nursing): Allergic Reaction History Per: Patient Onset/Duration Of Symptoms: Gradual Past Medical History Reviewed: Historical Data, Nursing Documentation, Vital Signs Vital Signs: Last Vital Signs Temp 97.7 F 05/27/17 21:08 Pulse 82 05/27/17 21:08 Resp 20 05/27/17 21:08 BP 159/106 H 05/27/17 21:08 Pulse Ox 99 05/27/17 21:52 - Medical History PMH: HTN, Chronic Kidney Disease Family History: States: Unknown Family Hx - Social History Hx Tobacco Use: No Hx Alcohol Use: No Hx Substance Use: No - Immunization History Hx Tetanus Toxoid Vaccination: No Hx Influenza Vaccination: No Hx Pneumococcal Vaccination: No Review Of Systems Except As Marked, All Systems Reviewed And Found Negative. Constitutional: Negative for: Fever, Chills Eyes: Negative for: Vision Change ENT: Negative for: Throat Pain, Throat Swelling Cardiovascular: Negative for: Chest Pain Respiratory: Negative for: Cough, Shortness of Breath, Wheezing Gastrointestinal: Negative for: Nausea, Vomiting, Abdominal Pain, Diarrhea Genitourinary: Negative for: Dysuria, Incontinence Musculoskeletal: Negative for: Neck Pain, Back Pain Skin: Positive for: Rash Neurological: Negative for: Altered Mental Status, Headache, Dizziness Physical Exam - Physical Exam Appears: Well, Non-toxic, No Acute Distress Skin: Normal Color, Warm, Dry, Rash (diffuse erythematous urticaria to torso, blenchable. Scatetred macular rash to B/L UEs and LEs.) Head: Normacephalic Eye(s): bilateral: PERRL Nose: No Flaring, No Discharge Oral Mucosa: Moist, No Drooling Tongue: Normal Appearing, No Swelling Lips: Normal Appearing, No Swelling Throat: No Drooling, Other (Uvula midline, no edema.) Neck: Supple Cardiovascular: Rhythm Regular, No JVD Respiratory: No Decreased Breath Sounds, No Accessory Muscle Use, No Rales, No Rhonchi, No Stridor, No Wheezing Gastrointestinal/Abdominal: Soft, No Tenderness, No Distention, No Guarding Back: No CVA Tenderness Extremity: Normal ROM, No Pedal Edema, No Deformity, No Swelling Neurological/Psych: Oriented x3, Normal Speech ED Course And Treatment - Laboratory Results Result Diagrams: 05/27/17 21:44 05/27/17 21:44 Lab Interpretation: No Acute Changes O2 Sat by Pulse Oximetry: 99 Pulse Ox Interpretation: Normal Progress Note: On re-eval, pt is reports moderate improvement in rash. awake, comforatble, not in any apparent distress. Afebrile, hemodynamicaly stable. Non-toxic. Tolerate PO well in ED. PulsEOx 99% RA. ENT: no acute findings. uvula midline, no edema. Neck: SUpple, (-) meningeal sign. Lungs: CTA B/L, BS equal B/L. ABd: benign, (-) guarding, (-) rebound. Neurologicaly intact. Blood work review and compare with recent studised, appears baseline, no new acute abnormalities. Pt advised to stop Percocet due to allergic reaction. ref. to f/u with PMd in2 -3 days for re-eavl. return if any new changes. Disposition Counseled Patient/Family Regarding: Studies Performed, Diagnosis, Need For Followup, Rx Given - Disposition Referrals: Vishal Ware MD [Staff Provider] - Disposition: HOME/ ROUTINE Disposition Time: 22:54 Condition: STABLE Additional Instructions: STOP PERCOCET DUE TO ALLERGIC REACTION TAKE MEDICATION PRESCRIBED ENCOURAGE FLUIDS FOLLOW UP WITH PMD IN 2-3 DAYS FOR RE-EVALUATION. RETURN TO ED IF ANY WORSENING OR NEW CHANGES. Prescriptions: DiphenhydrAMINE [Benadryl] 50 mg PO BID #10 cap Famotidine [Pepcid] 20 mg PO BID #10 tab Prednisone [Deltasone] 60 mg PO DAILY #9 tablet Instructions: Urticaria (ED) Forms: [facility] (Cameroonian) - Clinical Impression Clinical Impression: Allergic urticaria
[2017-05-27 21:46] LABS: HEMOGLOBIN 14.3 g/dL (12.0-18.0); MEAN CELL VOLUME 82.4 fL (80.0-94.0); RBC 5.27 Mil/uL (4.40-5.90); WHITE BLOOD COUNT 9.8 K/uL (4.8-10.8)
[2017-05-27] MEDS ORDERED: DiphenhydrAMINE 50 mg/ml Inj ONE (21:46)
[2017-05-27] MEDS ORDERED: Sodium Chloride 0.9% 1,000 ML ONE (21:46)
[2017-05-27 21:47] LABS: BASO # 0.1 K/uL (0.0-0.2); BASO % 0.7 % (0.0-2.0); EOS # 0.2 K/uL (0.0-0.7); EOS % 2.2 % (0.0-4.0); LYMPH # 1.5 K/uL (1.0-4.3); LYMPH % 15.5 % (20.0-40.0); MEAN CORPUSCULAR HEMOGLOBIN 27.2 pg (27.0-31.0); MEAN PLATELET VOLUME 7.1 fL (7.2-11.7); MONO # 1.2 K/uL (0.0-0.8); MONO % 12.4 % (0.0-10.0); NEUT # 6.8 K/uL (1.8-7.0); NEUT % 69.2 % (50.0-75.0)
[2017-05-27 22:00] LABS: ALB/GLOB RATIO 1.3 (1.0-2.1); ALBUMIN 4.2 g/dL (3.5-5.0); CALCIUM 8.2 mg/dl (8.6-10.4)
[2017-05-27 23:04] LABS: URINE BILIRUBIN NEGATIVE (NEGATIVE); URINE BLOOD NEGATIVE (NEGATIVE); URINE CLARITY Clear (Clear); URINE COLOR Straw (YELLOW); URINE GLUCOSE (UA) NORMAL (Normal); URINE LEUKOCYTE ESTERASE NEG Leu/uL (Negative); URINE NITRATE NEGATIVE (NEGATIVE); URINE PROTEIN NEGATIVE (NEGATIVE); URINE UROBILINOGEN NORMAL mg/dL (0.2-1.0)
== END 2017-05-27 23:18 | disposition home or self-care (01) ==
LOC: C.ER 20:37
DX: L50.0 Allergic urticaria (principal); I12.9 Hypertensive chronic kidney disease with stage 1 through stage 4 chronic kidney disease, or unspecified chronic kidney disease; N18.9 Chronic kidney disease, unspecified
CPT/HCPCS: 80053; 81001; 85025; 96361; 96374; 96375; 99283; J1200; J2930; J7040

== ENCOUNTER 2018-06-24 09:27 | Outpatient (CLI) | payer MEDICAID | END 2018-06-24 09:28 | disposition home or self-care (01) | LOC: C.LAB 09:27 ==

== ENCOUNTER 2018-09-23 08:51 | Outpatient (CLI) | payer MEDICAID | END 2018-09-23 08:52 | disposition home or self-care (01) | LOC: C.LAB 08:51 | DX: N18.4 Chronic kidney disease, stage 4 (severe) (principal) ==